=== PATIENT | male | born 1930 | race Caucasian/White ===

== ENCOUNTER 2018-03-17 08:16 | Inpatient (IN) | payer OTHER ==
[~2018-03-17] VITALS: Ht 175.3 cm; Wt 82.1 kg
[~2018-03-17 08:16] MED LIST: ALBUTEROL SULF8.5 GM IH; ASPIR-LOW81 MG PO; BP MEDICINE; CLOPIDOGREL75 MG PO; CYMBALTA60 MG PO; FINASTERIDE5 MG PO; FLAGYL500 MG PO; FLOMAX0.4 MG PO; GLIMEPIRIDE1 MG PO; GLIPIZIDE ER2.5 MG PO; GLIPIZIDE5 MG PO; HYDROCHLOROTH12.5 MG PO; LEVAQUIN500 MG PO; LEVOTHYROXINE25 MCG PO; LOVASTATIN40 MG PO; MIRTAZAPINE45 MG PO; NORVASC10 MG PO; SIMVASTATIN20 MG PO; TOVIAZ4 MG PO; ZITHROMAX500 MG PO
[2018-03-17] MEDS ORDERED: SODIUM CHLORIDE FLUSH 10 ML SYR INJ PRN (08:30)
[2018-03-17] MEDS ORDERED: ONDANSETRON HCL INJ 2 MG/ML VIAL IV STA (08:51)
[2018-03-17] MEDS ORDERED: MORPHINE SULFATE 4 MG/ML SYR IV STA (08:51)
--- NOTE | 2018-03-17 09:16 | Diagnostic Imaging Report ---
EXAMINATION: CT of the lumbar spine HISTORY:Chronic low back pain worsening this morning. No history of recent trauma. COMPARISON: Lumbar spine x-ray done 07/29/2013 TECHNIQUE: Multidetector helical axial images were obtained without contrast from L1 to S1. The images were reconstructed using bone and soft tissue algorithms and were viewed in axial, sagittal, and coronal planes. FINDINGS: Alignment:Normal alignment and lordosis. Vertebral bodies: Very minimal anterior wedging of the T12 vertebral body, otherwise normal height and density. Paraspinal soft tissues:Partially visualized hypodense foci in the kidneys, which are nonspecific and may represent cystic lesions, please see dictation of prior abdomen CT performed on 05-24-15 (images not available for comparison) for further detail. Intervertebral disks degenerative changes: Decreased disc height, chronic endplate degenerative changes and marginal osteophytes from L1-2 through L5-S1. L1-L2: Spondylosis, mild central disc vacuum phenomena and bilateral facet arthrosis. Mild to moderate bilateral foraminal stenosis. L2-L3: Spondylosis, central disc vacuum phenomena, ligamenta flava thickening and mild facet arthrosis. Mild to moderate bilateral foraminal stenoses. Minimal canal narrowing. L3-L4: Spondylosis, vacuum phenomena, ligamentum flavum thickening and facet arthrosis. Severe spinal canal and mild foraminal stenoses. Minimal retrolistheses. L4-L5 and L5-S1: Status post solid bilateral posterior fusion from L4 to S1 with interlaminar hardware in adequate position, no hardware failure, loosening or fracture. Solid interbody fusion is also seen at L4-L5 and on the left at L5-S1. No significant canal or foraminal stenosis. Unchanged from x-ray from 07/29/2013. Sacroiliac joints: -Degenerative changes bilaterally. -Bone defect along the posterior aspect of the right iliac bone, likely related to donor site for spine fusion. IMPRESSION: 1. Postoperative changes from L4 to S1 with solid fusion as detail above. 2. Severe degenerative spinal canal and mild foraminal stenoses at L3-L4. 3. Mild to moderate degenerative foraminal stenosis at L1-L2 and L2-L3. 4. Minimal retrolisthesis at L3-L4. Signed by: Dr. Licha Gabriel M.D. on 03/17/2018 9:12 AM
[2018-03-17 09:23] LABS: BASOPHILS % 0.5 % (0.0-1.0); EOSINOPHILS # (AUTO) 0.1 (0.0-0.4); EOSINOPHILS % 1.8 % (0.0-6.0); HEMATOCRIT 43.6 % (38.2-49.6); HEMOGLOBIN 14.6 g/dL (14.0-18.0); LYMPHOCYTES % 25.1 % (18.0-39.1); MEAN CORPUSCULAR HEMOGLOBIN 31.2 pg (28-32); MEAN CORPUSCULAR HGB CONC 33.5 g/dL (31-35); MEAN CORPUSCULAR VOLUME 93.2 fL (81-99); MONOCYTES # (AUTO) 0.8 (0.2-0.8); MONOCYTES % 9.5 % (4.4-11.3); NEUTROPHILS # (AUTO) 4.9 (2.1-6.9); NEUTROPHILS % 62.8 % (38.7-80.0); PLATELET COUNT 195 x10e3/uL (140-360); RED BLOOD COUNT 4.68 x10e6/uL (4.3-5.7); RED CELL DISTRIBUTION WIDTH 13.9 % (11.7-14.4)
[2018-03-17] MEDS ORDERED: MORPHINE SULFATE 2 MG/ML SYR ONE (09:29)
[2018-03-17 09:37] LABS: ALBUMIN 3.8 g/dL (3.5-5.0); ANION GAP 18.8 mmol/L (8-16); CALCIUM 9.6 mg/dL (8.4-10.2); CREATININE, SERUM 1.66 mg/dL (0.72-1.25); POTASSIUM 4.8 mmol/L (3.5-5.1)
[2018-03-17] MEDS ORDERED: FENTANYL CITRATE/PF 100MCG/2 ML INJ IV ONE (10:30)
[2018-03-17 11:05] LABS: CLARITY,URINE CLEAR (CLEAR); COLOR,URINE YELLOW (YELLOW)
[2018-03-17 11:06] LABS: BILIRUBIN,URINE NEGATIVE (NEGATIVE); KETONES,URINE NEGATIVE (NEGATIVE); LEUKOCYTE ESTERASE ,URINE NEGATIVE (NEGATIVE); NITRITE,URINE NEGATIVE (NEGATIVE); PROTEIN,URINE DIPSTICK 1+ (NEGATIVE); URINE UROBILINOGEN 0.2 mg/dL (0.2 - 1)
[2018-03-17 11:17] LABS: AMORPHOUS SEDIMENT,URINE FEW (FEW); BACTERIA,URINE FEW /HPF; EPITHELIAL CELLS,URINE MODERATE /LPF; RBC,URINE 0-5 /HPF (0-5); WBC,URINE (MAN) 0-5 /HPF (0-5)
[2018-03-17] MEDS ORDERED: ONDANSETRON HCL INJ 2 MG/ML VIAL IV PRN (11:45)
[2018-03-17] MEDS ORDERED: HYDROMORPHONE 1MG/1ML INJ IV PRN (11:45)
[2018-03-17] MEDS ORDERED: NOVOLIN N100 UNIT/1 SQ (11:49)
[2018-03-17] MEDS ORDERED: LATANOPROST2.5 ML OP (11:49)
[2018-03-17] MEDS ORDERED: LISINOPRIL2.5 MG PO (11:49)
[2018-03-17] MEDS ORDERED: HYDROMORPHONE HC2 MG PO (11:50)
--- OUTSIDE RECORDS SUMMARY | 2018-03-17 12:46 | XMS REPORT ---
Author Author [facility] Address Unknown Phone Unavailable Care Team Providers Care Long Term Care Pharmacist Name Role Phone MANNY HERNADEZ Unavailable Unavailable Problems This patient has no known problems. Allergies, Adverse Reactions, Alerts This patient has no known allergies or adverse reactions. Medications This patient has no known medications. Results Test Description Test Time Test Comments Text Results Atomic Results Result Comments CT LUMBAR SPINE WO [facility] [address] [address] Patient Name: GEE OWUSU MR #: [id number] : 1930 Age/Sex: 87/M Req #: [id number] Adm Physician: Ordered by: MANNY HERNADEZ MD Report #: [id number] Location: ER Room/Bed: Procedure: [id number] CT/CT LUMBAR SPINE WO Exam Date: 03/17/18 Exam Time: 0830 REPORT STATUS: Signed EXAMINATION: CT of the lumbar spine HISTORY:Chronic low back pain worsening this morning. No history of recent trauma. COMPARISON: Lumbar spine x-ray done 07/29/2013 TECHNIQUE: Multidetector helical axial images were obtained without contrast from L1 to S1. The images were reconstructed using bone and soft tissue algorithms and were viewed in axial, sagittal, and coronal planes. FINDINGS : Alignment:Normal alignment and lordosis. Vertebral bodies: Very minimal anterior wedging of the T12 vertebral body, otherwise normal height and density. Paraspinal soft tissues:Partially visualized hypodense foci in the kidneys, which are nonspecific and may represent cystic lesions, please see dictation of prior abdomen CT performed on 05-24-15 (images not available for comparison) for further detail. Intervertebral disks degenerative changes: Decreased disc height, chronic endplate degenerative changes and marginal osteophytes from L1-2 through L5- S1. L1-L2: Spondylosis, mild central disc vacuum phenomena and bilateral facet arthrosis. Mild to moderate bilateral foraminal stenosis. L2-L3: Spondylosis, central disc vacuum phenomena, ligamenta flava thickening and mild facet arthrosis. Mild to moderate bilateral foraminal stenoses. Minimal canal narrowing. L3-L4: Spondylosis, vacuum phenomena, ligamentum flavum thickening and facet arthrosis. Severe spinal canal and mild foraminal stenoses. Minimal retrolistheses. L4-L5 and L5-S1: Status post solid bilateral posterior fusion from L4 to S1 with interlaminar hardware in adequate position, no hardware failure, loosening or fracture. Solid interbody fusion is also seen at L4-L5 and on the left at L5-S1. No significant canal or foraminal stenosis. Unchanged from x-ray from 07/29/2013. Sacroiliac joints: -Degenerative changes bilaterally. -Bone defect along the posterior aspect of the right iliac bone, likely related to donor site for spine fusion. IMPRESSION: 1. Postoperative changes from L4 to S1 with solid fusion as detail above. 2. Severe degenerative spinal canal and mild foraminal stenoses at L3-L4. 3. Mild to moderate degenerative foraminal stenosis at L1-L2 and L2-L3. 4. Minimal retrolisthesis at L3-L4. Signed by: Dr. Alexx Lopez M.D. on 03/17/2018 9 :12 AM Dictated By: ALEXX LOPEZ MD 1 Transcribed By: ELICEO on 03/17/18911 COPY TO: MANNY HERNADEZ MD
[2018-03-17] MEDS ORDERED: LORAZEPAM INJ 2 MG/ML VIAL IV ONE (14:30)
[2018-03-17 16:45] VITALS: BP 152/85
[2018-03-17 16:55] VITALS: BP 152/85
[2018-03-17] MEDS ORDERED: DEXTROSE 50% SYRINGE 50 ML IV PRN (19:30)
[2018-03-17 20:00] VITALS: BP 180/88
[2018-03-17] MEDS: MORPHINE SULFATE 2 MG/ML SYR IV PRN (20:54)
[2018-03-17] MEDS ORDERED: FINASTERIDE 5 MG TAB PO SCH (21:00)
[2018-03-17] MEDS ORDERED: SIMVASTATIN 40 MG TAB PO SCH (21:00)
[2018-03-17] MEDS ORDERED: SIMVASTATIN 20 MG TAB PO SCH (21:00)
[2018-03-18] VITALS: BP 141/69
[2018-03-18 04:00] VITALS: BP 146/66
[2018-03-18] MEDS ORDERED: LEVOTHYROXINE SODIUM 125 MCG TAB PO SCH (06:00)
[2018-03-18] MEDS ORDERED: NON-FORMULARY MEDICATION (Glimepiride 1 MG) PO SCH (07:30)
[2018-03-18] MEDS ORDERED: GLIPIZIDE 5 MG TAB PO SCH (07:30)
[2018-03-18] MEDS ORDERED: GLIMEPIRIDE 2 MG TAB PO SCH (07:30)
[2018-03-18 07:45] VITALS: BP 121/67
[2018-03-18] MEDS: MORPHINE SULFATE 2 MG/ML SYR IV PRN (08:02)
[2018-03-18] MEDS ORDERED: PANTOPRAZOLE SOD 40 MG TABEC PO ONE (08:45)
[2018-03-18] MEDS ORDERED: MELOXICAM 7.5 MG TAB PO SCH (08:45)
[2018-03-18] MEDS ORDERED: PREDNISONE 20 MG TAB PO ONE (08:45)
[2018-03-18] MEDS: NPH, HUMAN INSULIN ISOPHANE 100 UNIT/1 ML 3ML VIAL SQ SCH ×2 (08:53→12:06)
[2018-03-18] MEDS ORDERED: GABAPENTIN 100 MG CAP PO SCH (09:00)
[2018-03-18] MEDS ORDERED: DULOXETINE HCL 30 MG DELAYED RELEASE PO SCH (09:00)
[2018-03-18] MEDS ORDERED: NON-FORMULARY MEDICATION (Duloxetine Hcl (Cymbalta) 60 MG) PO SCH (09:00)
[2018-03-18] MEDS ORDERED: TAMSULOSIN HCL 0.4 MG CAP PO SCH ×2 (09:00→21:00)
[2018-03-18] MEDS: SENNOSIDES 8.6 MG TAB PO SCH ×2 (09:00→09:15)
[2018-03-18] MEDS ORDERED: MIRTAZAPINE 45 MG PO SCH (09:00)
[2018-03-18] MEDS ORDERED: CLOPIDOGREL BISULFATE 75 MG TAB PO SCH (09:00)
[2018-03-18] MEDS ORDERED: MIRTAZAPINE 15 MG TAB PO SCH ×2 (09:00→21:00)
[2018-03-18] MEDS ORDERED: LISINOPRIL 2.5 MG TAB PO SCH (09:00)
[2018-03-18] MEDS ORDERED: LEVOTHYROXINE SODIUM 25 MCG TABLET PO SCH (09:00)
[2018-03-18] MEDS ORDERED: PANTOPRAZOLE SOD 40 MG TABEC ONE (09:05)
[2018-03-18] MEDS ORDERED: GABAPENTIN 100 MG CAP ONE (09:05)
[2018-03-18] MEDS ORDERED: SENNOSIDES 8.6 MG TAB ONE (09:05)
[2018-03-18] MEDS ORDERED: PREDNISONE 20 MG TAB ONE (09:05)
[2018-03-18] MEDS ORDERED: MELOXICAM 7.5 MG TAB ONE (09:05)
[2018-03-18 10:14] VITALS: BP 121/67
[2018-03-18 10:32] VITALS: BP 135/79
[2018-03-18 11:41] VITALS: BP 105/67
[2018-03-18] MEDS ORDERED: PREDNISONE5 MG PO (11:41)
[2018-03-18] MEDS ORDERED: NEURONTIN100 MG PO (11:43)
[2018-03-18] MEDS ORDERED: MOBIC15 MG PO (11:43)
[2018-03-18] MEDS ORDERED: SENNA LAX8.6 MG PO (11:44)
[2018-03-18] MEDS ORDERED: PRILOSEC10 M1 PO (11:44)
[2018-03-18] MEDS ORDERED: LATANOPROST(OPTH) 2.5 ML BTL OP SCH (21:00)
== END 2018-03-18 13:15 | disposition home health service (06) | DRG 552 ==
LOC: ER 08:16 → ERHOLD 11:33 → IMCU 16:34 → MED/SURG 20:22
PROVIDERS: ADMIT Internal Medicine; ATTEND Internal Medicine
DX: M54.5 Low back pain (principal); E11.9 Type 2 diabetes mellitus without complications; I10 Essential (primary) hypertension; Z79.4 Long term (current) use of insulin; F32.9 Major depressive disorder, single episode, unspecified; F41.9 Anxiety disorder, unspecified
CPT/HCPCS: 36415; 72131; 80053; 81001; 82948; 85025; 99284; J1170; J2060; J2270; J2405

== ENCOUNTER 2018-05-29 12:13 | Emergency (ER) | payer OTHER ==
[~2018-05-29] VITALS: Ht 175.3 cm; Wt 88.0 kg
[~2018-05-29 12:13] MED LIST changes: +HYDROMORPHONE HC2 MG PO; +LATANOPROST2.5 ML OP; +LISINOPRIL2.5 MG PO; +MOBIC15 MG PO; +NEURONTIN100 MG PO; +NOVOLIN N100 UNIT/1 SQ; +PREDNISONE5 MG PO; +PRILOSEC10 M1 PO; +SENNA LAX8.6 MG PO
[2018-05-29 12:47] LABS: BASOPHILS % 0.4 % (0.0-1.0); EOSINOPHILS # (AUTO) 0.1 (0.0-0.4); EOSINOPHILS % 1.1 % (0.0-6.0); HEMOGLOBIN 15.1 g/dL (14.0-18.0); LYMPHOCYTES # (AUTO) 2.2 (1.0-3.2); LYMPHOCYTES % 24.4 % (18.0-39.1); MEAN CORPUSCULAR HEMOGLOBIN 30.8 pg (28-32); MEAN CORPUSCULAR HGB CONC 32.8 g/dL (31-35); MEAN CORPUSCULAR VOLUME 93.7 fL (81-99); MONOCYTES # (AUTO) 0.8 (0.2-0.8); MONOCYTES % 8.3 % (4.4-11.3); NEUTROPHILS % 65.3 % (38.7-80.0); PLATELET COUNT 207 x10e3/uL (140-360); RED BLOOD COUNT 4.91 x10e6/uL (4.3-5.7); RED CELL DISTRIBUTION WIDTH 14.2 % (11.7-14.4)
[2018-05-29 12:59] LABS: ALBUMIN 3.9 g/dL (3.5-5.0); ANION GAP 16.6 mmol/L (8-16); CALCIUM 10.1 mg/dL (8.4-10.2); CREATININE, SERUM 1.82 mg/dL (0.72-1.25); POTASSIUM 4.6 mmol/L (3.5-5.1)
[2018-05-29] MEDS ORDERED: LORAZEPAM INJ 2 MG/ML VIAL IV ONE (13:00)
[2018-05-29 13:19] LABS: CREATINE KINASE MB 1.9 ng/mL (0-5.0); THYROID STIMULATING HORMONE 1.099 uIU/mL (0.350-4.940)
--- NOTE | 2018-05-29 16:17 | Diagnostic Imaging Report ---
EXAM: CT Abdomen and Pelvis WITHOUT contrast INDICATION: Pain. Acute abdomen. KSP. COMPARISON: None. TECHNIQUE: Abdomen and pelvis were scanned utilizing a multidetector helical scanner from the lung base to the pubic symphysis without administration of IV contrast. Absence of intravenous contrast decreases sensitivity for detection of focal lesions and vascular pathology. Coronal and sagittal reformations were obtained. Routine protocol was performed. IV CONTRAST: None. ORAL CONTRAST: Water RADIATION DOSE: Total DLP: 624.73 mGy*cm Estimated effective dose: (DLP x 0.015 x size factor) mSv COMPLICATIONS: None FINDINGS: LINES and TUBES: None. LOWER THORAX: Bibasilar emphysematous changes. Coronary artery calcifications. HEPATOBILIARY: Small low-attenuation lesions suggestive of cysts, the largest in the lateral segment of the left lobe measuring 1.2 cm on image 35 series 3.. No biliary ductal dilation. GALLBLADDER: No radio-opaque stones or sludge. No wall thickening. SPLEEN: No splenomegaly. PANCREAS: No focal masses or ductal dilatation. Multiple pancreatic head calcifications. ADRENALS: No adrenal nodules KIDNEYS/URETERS: No hydronephrosis. 6.0 cm cyst in the lower pole of the right kidney. 2.7 cm cyst in the posterior interpolar region of the left kidney. No stones. GI TRACT: No abnormal distention, wall thickening, or evidence of bowel obstruction. Large volume of stool within the colon. Scattered descending and sigmoid colon diverticulosis without CT evidence of diverticulitis. Appendix is normal. PELVIC ORGANS/BLADDER: Unremarkable. LYMPH NODES: No lymphadenopathy. VESSELS: There is moderate atherosclerotic disease in the aorta and major arterial branches. Ectatic iliac arteries, with the left, iliac artery measuring 2.1 cm in diameter. PERITONEUM / RETROPERITONEUM: No free air or fluid. BONES: The site defect in the right ilium. Status post laminectomy and posterior fusion of L4-L5 with transpedicular screws system. SOFT TISSUES: Unremarkable. IMPRESSION: 1. Large volume of stool within the colon may reflect constipation in the proper clinical setting. No small bowel obstruction. 2. Colonic diverticulosis without diverticulitis. Signed by: Dr. Elver Cancino M.D. on 05/29/2018 4:14 PM
[2018-05-29 17:33] LABS: BILIRUBIN,URINE NEGATIVE (NEGATIVE); CLARITY,URINE CLEAR (CLEAR); COLOR,URINE YELLOW (YELLOW); KETONES,URINE NEGATIVE (NEGATIVE); LEUKOCYTE ESTERASE ,URINE NEGATIVE (NEGATIVE); NITRITE,URINE NEGATIVE (NEGATIVE); PROTEIN,URINE DIPSTICK NEGATIVE (NEGATIVE); URINE UROBILINOGEN 0.2 mg/dL (0.2 - 1)
[2018-05-29 17:34] LABS: EPITHELIAL CELLS,URINE MODERATE /LPF
[2018-05-29 17:35] LABS: RBC,URINE 0-5 /HPF (0-5); WBC,URINE (MAN) 0-5 /HPF (0-5)
[2018-05-29 21:48] VITALS: BP 126/84
== END 2018-05-29 22:40 | disposition home or self-care (01) ==
LOC: ER 12:13
DX: F33.2 Major depressive disorder, recurrent severe without psychotic features (principal); R53.1 Weakness; E11.9 Type 2 diabetes mellitus without complications; N28.9 Disorder of kidney and ureter, unspecified; G89.29 Other chronic pain
CPT/HCPCS: 36415; 74176; 80053; 81001; 82550; 82553; 84443; 84484; 85025; 93005; 99284; J2060

== ENCOUNTER 2018-06-25 07:36 | Emergency (ER) | payer OTHER ==
[~2018-06-25] VITALS: Ht 177.8 cm; Wt 88.0 kg
[2018-06-25] MEDS ORDERED: SODIUM CHLORIDE 0.9% 1000ML 1,000 ML IV STA (08:16)
[2018-06-25 09:06] LABS: BASOPHILS % 0.3 % (0.0-1.0); EOSINOPHILS # (AUTO) 0.1 (0.0-0.4); EOSINOPHILS % 1.2 % (0.0-6.0); HEMATOCRIT 41.5 % (38.2-49.6); HEMOGLOBIN 13.4 g/dL (14.0-18.0); LYMPHOCYTES # (AUTO) 1.6 (1.0-3.2); LYMPHOCYTES % 20.5 % (18.0-39.1); MEAN CORPUSCULAR HEMOGLOBIN 30.7 pg (28-32); MEAN CORPUSCULAR HGB CONC 32.3 g/dL (31-35); MEAN CORPUSCULAR VOLUME 95.2 fL (81-99); MONOCYTES # (AUTO) 0.8 (0.2-0.8); MONOCYTES % 10.6 % (4.4-11.3); NEUTROPHILS # (AUTO) 5.2 (2.1-6.9); NEUTROPHILS % 67.3 % (38.7-80.0); PLATELET COUNT 162 x10e3/uL (140-360); RED BLOOD COUNT 4.36 x10e6/uL (4.3-5.7); RED CELL DISTRIBUTION WIDTH 14.3 % (11.7-14.4)
--- NOTE | 2018-06-25 09:15 | Diagnostic Imaging Report ---
PROCEDURE: CHEST SINGLE (PORTABLE) COMPARISON: None. INDICATIONS: SHORTNESS OF BREATH, ANXIETY FINDINGS: The lungs are well-inflated. No focal airspace consolidation, pleural effusion, or pneumothorax. Mild prominence of the pulmonary interstitial likely reflects age-related fibrotic changes. Normal heart size. Tortuous thoracic aorta with prominence of the right paratracheal region of the mediastinum likely reflective of great vessel tortuosity. No acute osseous abnormality. CONCLUSION: No acute cardiopulmonary abnormality. Dictated by: Chino Plunkett M.D. on 06/25/2018 at 9:17 Electronically approved by: Chino Plunkett M.D. on 06/25/2018 at 9:17
[2018-06-25 09:24] LABS: ALBUMIN 3.5 g/dL (3.5-5.0); ALBUMIN/GLOBULIN RATIO 1.1 (0.8-2.0); CALCIUM 9.5 mg/dL (8.4-10.2); CREATININE, SERUM 1.6 mg/dL (0.72-1.25)
[2018-06-25 09:30] LABS: CREATINE KINASE MB 1.9 ng/mL (0-5.0)
[2018-06-25 09:47] LABS: ACETAMINOPHEN < 3 ug/mL (10-30); SALICYLATE < 5.0 mg/dL (0-30)
[2018-06-25 14:38] LABS: CLARITY,URINE SL CLOUDY (CLEAR); COLOR,URINE YELLOW (YELLOW); LEUKOCYTE ESTERASE ,URINE NEGATIVE (NEGATIVE); NITRITE,URINE NEGATIVE (NEGATIVE)
[2018-06-25 14:39] LABS: AMPHETAMINES SCREEN,URINE NEGATIVE (NEGATIVE); BENZODIAZEPINES SCREEN,URINE NEGATIVE (NEGATIVE); BILIRUBIN,URINE NEGATIVE (NEGATIVE); KETONES,URINE NEGATIVE (NEGATIVE); PHENCYCLIDINE SCREEN,URINE NEGATIVE (NEGATIVE); PROTEIN,URINE DIPSTICK NEGATIVE (NEGATIVE); URINE UROBILINOGEN 0.2 mg/dL (0.2 - 1)
[2018-06-25 14:44] LABS: BACTERIA,URINE RARE /HPF; EPITHELIAL CELLS,URINE MODERATE /LPF; TRANSITIONAL EPI CELLS,URINE FEW
[2018-06-25] MEDS ORDERED: HYDROMORPHONE 1MG/1ML INJ IV STA (16:17)
[2018-06-25] MEDS ORDERED: ONDANSETRON HCL INJ 2 MG/ML VIAL IV STA (16:17)
[2018-06-25 17:01] VITALS: BP 139/58
== END 2018-06-25 16:46 ==
LOC: ER 07:36
DX: R45.851 Suicidal ideations (principal); F32.9 Major depressive disorder, single episode, unspecified; M25.511 Pain in right shoulder; M54.9 Dorsalgia, unspecified; G89.29 Other chronic pain; I10 Essential (primary) hypertension; E11.9 Type 2 diabetes mellitus without complications; E78.5 Hyperlipidemia, unspecified
CPT/HCPCS: 36415; 71045; 80053; 80307; 80320; 80329 ×2; 81001; 82550; 82553; 84484; 85025; 93005; 99284; J1170; J2405; J7030

== ENCOUNTER 2018-07-04 08:56 | Emergency (ER) | payer OTHER ==
[~2018-07-04] VITALS: Ht 177.8 cm; Wt 88.0 kg
[2018-07-04] MEDS ORDERED: KETOROLAC TROMETHAMINE 30 MG/ML VIAL IM STA (09:07)
[2018-07-04] MEDS ORDERED: KETOROLAC TROMETHAMINE 30 MG/ML VIAL ONE (09:09)
[2018-07-04] MEDS ORDERED: LORAZEPAM 0.5 MG TAB ONE (09:10)
[2018-07-04] MEDS ORDERED: LORAZEPAM 0.5 MG TAB PO ONE (09:15)
== END 2018-07-04 09:27 | disposition home or self-care (01) ==
LOC: ER 08:56
DX: F41.1 Generalized anxiety disorder (principal); F32.0 Major depressive disorder, single episode, mild; M25.511 Pain in right shoulder; M54.5 Low back pain; S39.012A Strain of muscle, fascia and tendon of lower back, initial encounter; I10 Essential (primary) hypertension
CPT/HCPCS: 99283; J1885

== ENCOUNTER 2018-07-12 11:04 | Emergency (ER) | payer OTHER ==
[~2018-07-12] VITALS: Ht 177.8 cm; Wt 88.0 kg
--- OUTSIDE RECORDS SUMMARY | 2018-08-26 03:13 | XMS REPORT | Continuity of Care Document ---
Author Author [facility] Organization [facility] Address [address] [place] [address] Phone Unavailable Care Team Providers Care Sporting Goods Sales Associate Name Role Phone GALEN SOTO MD PCP Insurance Providers Guarantor Gee Pinto Address [address] [place] [address] Email PTDECLINED Payer [employer] Policy Number [id number] Subscriber's Name Gee Pinto Relationship 18 Self / Same As Patient Group Number [id number] Group Name [employer] Effective Date 18 Advance Directives Directive Response Recorded Date/Time Does the patient have an advance directive? No 03/17/18 4:50pm If yes, is advance directive on file with [facility]? No 03/17/18 4:50pm If not on file with [facility] will patient provide a copy? No 03/17/18 4:50pm Do you have a Directive to Physician? No 07/04/18 9:17am Do you have a Medical Power of Olericulturist? No 07/04/18 9:17am Do you have an out of hospital Do Not Resuscitate Order? No 07/04/18 9:17am Do you have any special needs we should be aware of? No 07/04/18 9:17am Do you have a support person here with you today? Yes 07/04/18 9:17am Did patient receive Notice of Privacy Practices? Yes 07/04/18 9:17am Did patient receive patient rights and responsibilities? Yes 07/04/18 9:17am Problems Medical Problem Onset Date Status Fever 12/16/2014 Acute Gastroenteritis 05/24/2015 Acute Hypoxia 12/16/2014 Acute Intractable back pain Unknown Medications Current Home Medications Medication Dose Units Route Directions Days Qty Instructions Start Date Clopidogrel Bisulfate (Clopidogrel) 75 Mg Tablet 75 Mg Oral Daily 30 Tab Duloxetine Hcl (Cymbalta) 60 Mg Capsule.dr 60 Mg Oral Twice A Day Finasteride 5 Mg Tablet 5 Mg Oral Bedtime 30 Tab Gabapentin (Neurontin) 100 Mg Capsule 100 Mg Oral Three Times A Day Glipizide 5 Mg Tablet 2.5 Mg Oral Daily Hydromorphone Hcl 2 Mg Tablet 8 Mg Oral Twice A Day as needed for Pain Latanoprost 2.5 Ml Drops 2.5 Ml Ophthalmic Daily Levothyroxine Sodium 25 Mcg Tablet 125 Mcg Oral Daily Lisinopril 2.5 Mg Tablet 2.5 Mg Oral Daily 30 Tab Lovastatin 40 Mg Tablet 40 Mg Oral Bedtime THERAPEUTICALLY SUBSTITUTED WITH SIMVASTATIN 20MG Meloxicam (Mobic) 15 Mg Tablet 7.5 Mg Oral Twice A Day Mirtazapine 45 Mg Tablet 45 Mg Oral Daily Nph, Human Insulin Isophane (Novolin N) 100 Unit/1 Ml Vial 30 Units Sub-Q Before Meals Omeprazole Magnesium (Prilosec) 10 Mg Suspdr.pkt 20 Mg Oral Daily Prednisone 5 Mg Tablet 5 Mg Oral Daily Sennosides (Senna Lax) 8.6 Mg Tablet 8.6 Mg Oral Twice A Day Tamsulosin Hcl (Flomax*) 0.4 Mg Cap 0.4 Mg Oral Daily Past Home Medications Medication Directions Ordered Status Albuterol Sulfate (Albuterol Sulfate Hfa) 8.5 Gm Hfa.aer.ad, 90 Mcg Inhalation Every 4 Hours as needed for Cough 12/20/14 Discontinued Amlodipine Besylate (Norvasc) 10 Mg Tab, 10 Mg Oral Daily Discontinued Aspirin (Aspir-Low) 81 Mg Tablet.dr, 81 Mg Oral Daily Discontinued Azithromycin (Zithromax) 500 Mg Tablet, 250 Mg Oral Daily 12/20/14 Discontinued Bp Medicine , Discontinued Fesoterodine Fumarate (Toviaz) 4 Mg Tab.er.24h, 4 Mg Oral Daily Discontinued Glimepiride 1 Mg Tablet, 1 Mg Oral Twice Daily Before Meals Discontinued Glipizide (Glipizide Er) 2.5 Mg Tab.er.24, 5 Mg Oral Daily Discontinued Hydrochlorothiazide 12.5 Mg Tablet, 12.5 Mg Oral Daily Discontinued Levofloxacin (Levaquin) 500 Mg Tablet, 500 Mg Oral Daily 05/25/15 Discontinued Metronidazole (Flagyl) 500 Mg Tablet, 500 Mg Oral Three Times A Day 05/25/15 Discontinued Simvastatin 20 Mg Tablet, 20 Mg Oral Daily Discontinued Social History Social History Problem Response Recorded Date/Time Onset Date Status Hx Psychiatric Problems No 03/17/2018 4:50pm Not Applicable Not Applicable Hx Eating Disorder No 03/17/2018 4:50pm Not Applicable Not Applicable Hx Substance Use Disorder No 03/17/2018 4:50pm Not Applicable Not Applicable Hx Depression No 03/17/2018 4:50pm Not Applicable Not Applicable Hx Alcohol Use No 03/17/2018 4:50pm Not Applicable Not Applicable Hx Substance Use Treatment No 03/17/2018 4:50pm Not Applicable Not Applicable Hx Physical Abuse No 03/17/2018 4:50pm Not Applicable Not Applicable Hospital Discharge Instructions No hospital discharge instruction information available. Plan of Care Discharge Date 07/04/18 9:27am Disposition HOME, SELF-CARE Condition at Discharge Stable Instructions/Education Provided Generalized Anxiety Disorder Back Pain Fall Prevention Prescriptions See Medication Section Referrals GALEN SOTO MD Address: [address] [place] [id number] Additional Instructions/Education KEEP YOUR DOCTOR APPOINTMENT 07/22/2018. FOLLOW INSTRUCTIONS FOR ALL MEDICATIONS. Functional Status No functional status information available. Allergies, Adverse Reactions, Alerts Allergen Type Severity Reaction Status Last Updated Iodine Allergy Unknown Active 05/29/18 Immunizations No immunization information available. Vital Signs Acute Vital Signs Vital Response Date/Time Temperature (Fahrenheit) 98.2 degrees F (97.6 - 99.5) 05/29/2018 9:48pm Pulse Pulse Rate (adult) 74 bpm (60 - 90) 06/25/2018 5:01pm Respiratory Rate 20 bpm (12 - 24) 06/25/2018 5:01pm Blood Pressure 139/58 mm Hg 06/25/2018 5:01pm Height 5 ft 10 in 07/04/2018 8:59am Weight 194 lb 07/04/2018 8:59am Body Mass Index 27.8 kg/m^2 07/04/2018 8:59am Results Laboratory Results Test Name Result Units Flags Reference Collection Date/Time Result Date/ Time Comments Urine Amorphous Sediment FEW FEW 03/17/2018 10:40am 03/17/2018 11: 17am Bedside Glucose 198 mg/dL H 70-120 03/18/2018 11:31am 03/18/2018 12: 05pm Meter ID: [id number] Thyroid Stimulating Hormone (TSH) 1.099 uIU/mL 0.350-4.940 05/29/2018 12 :25pm 05/29/2018 1:20pm White Blood Count 7.72 x10e3/uL 4.8-10.8 06/25/2018 8:40am 06/25/2018 9 :06am Red Blood Count 4.36 x10e6/uL 4.3-5.7 06/25/2018 8:40am 06/25/2018 9: 06am Hemoglobin 13.4 g/dL L 14.0-18.0 06/25/2018 8:40am 06/25/2018 9:06am Hematocrit 41.5 % 38.2-49.6 06/25/2018 8:40am 06/25/2018 9:06am Mean Corpuscular Volume 95.2 fL 81-99 06/25/2018 8:40am 06/25/2018 9: 06am Mean Corpuscular Hemoglobin 30.7 pg 28-32 06/25/2018 8:40am 06/25/2018 9:06am Mean Corpuscular Hemoglobin Concent 32.3 g/dL 31-35 06/25/2018 8:40am 06/25/2018 9:06am Red Cell Distribution Width 14.3 % 11.7-14.4 06/25/2018 8:40am 2017 9:06am Platelet Count 162 x10e3/uL 140-360 06/25/2018 8:40am 06/25/2018 9: 06am Neutrophils (%) (Auto) 67.3 % 38.7-80.0 06/25/2018 8:40am 06/25/2018 9: 06am Lymphocytes (%) (Auto) 20.5 % 18.0-39.1 06/25/2018 8:40am 06/25/2018 9: 06am Monocytes (%) (Auto) 10.6 % 4.4-11.3 06/25/2018 8:40am 06/25/2018 9: 06am Eosinophils (%) (Auto) 1.2 % 0.0-6.0 06/25/2018 8:40am 06/25/2018 9: 06am Basophils (%) (Auto) 0.3 % 0.0-1.0 06/25/2018 8:40am 06/25/2018 9:06am IM GRANULOCYTES % 0.1 % 0.0-1.0 06/25/2018 8:40am 06/25/2018 9:06am Neutrophils # (Auto) 5.2 2.1-6.9 06/25/2018 8:40am 06/25/2018 9:06am Lymphocytes # (Auto) 1.6 1.0-3.2 06/25/2018 8:40am 06/25/2018 9:06am Monocytes # (Auto) 0.8 0.2-0.8 06/25/2018 8:40am 06/25/2018 9:06am Eosinophils # (Auto) 0.1 0.0-0.4 06/25/2018 8:40am 06/25/2018 9:06am Basophils # (Auto) 0.0 0.0-0.1 06/25/2018 8:40am 06/25/2018 9:06am Absolute Immature Granulocyte (auto 0.01 x10e3/uL 0-0.1 06/25/2018 8: 40am 06/25/2018 9:06am Urine Color YELLOW YELLOW 06/25/2018 2:10pm 06/25/2018 2:40pm Urine Clarity SL CLOUDY H CLEAR 06/25/2018 2:10pm 06/25/2018 2:40pm Urine Specific [place] 1.020 1.010-1.025 06/25/2018 2:10pm 2017 2:40pm Urine pH 6 5 - 7 06/25/2018 2:10pm 06/25/2018 2:40pm Urine Leukocyte Esterase NEGATIVE NEGATIVE 06/25/2018 2:10pm 2017 2:40pm Urine Nitrite NEGATIVE NEGATIVE 06/25/2018 2:10pm 06/25/2018 2:40pm Urine Protein NEGATIVE NEGATIVE 06/25/2018 2:10pm 06/25/2018 2:40pm Urine Glucose (UA) NEGATIVE NEGATIVE 06/25/2018 2:10pm 06/25/2018 2: 40pm Urine Ketones NEGATIVE NEGATIVE 06/25/2018 2:10pm 06/25/2018 2:40pm Urine Opiates Screen POSITIVE H NEGATIVE 06/25/2018 2:10pm 06/25/2018 2:40pm This test provides only a screen. Positive results should be repeated by a confirmatory test. Urine Barbiturates Screen NEGATIVE NEGATIVE 06/25/2018 2:10pm 2017 2:40pm Urine Phencyclidine Screen NEGATIVE NEGATIVE 06/25/2018 2:10pm 2017 2:40pm Urine Amphetamines Screen NEGATIVE NEGATIVE 06/25/2018 2:10pm 2017 2:40pm Urine Methamphetamines Screen NEGATIVE NEGATIVE 06/25/2018 2:10pm 01/2018 2:40pm Urine Benzodiazepines Screen NEGATIVE NEGATIVE 06/25/2018 2:10pm 01/2018 2:40pm Urine Cocaine Screen NEGATIVE NEGATIVE 06/25/2018 2:10pm 06/25/2018 2 :40pm Urine Cannabinoids Screen NEGATIVE NEGATIVE 06/25/2018 2:10pm 2017 2:40pm THESE RESULTS ARE FOR MEDICAL TREATMENT ONLY *THIS REPORT CONTAINS UNCONFIRMED SCREENING RESULTS* POSITIVE RESULTS WILL BE CONFIRMED BY REFERENCE LAB UPON REQUEST CUT-OFF DRUG CLASS CONCENTRATION ng/mL Amphetamines 1000 Methamphetamines 1000 Cocaine 300 Opiate 300 Phencyclidine 25 Cannabinoid 50 Barbiturates 300 Benzodiazepine 300 Methadone 300 Urine Urobilinogen 0.2 mg/dL 0.2 - 1 06/25/2018 2:10pm 06/25/2018 2: 40pm Urine Bilirubin NEGATIVE NEGATIVE 06/25/2018 2:10pm 06/25/2018 2: 40pm Urine Blood NEGATIVE NEGATIVE 06/25/2018 2:10pm 06/25/2018 2:40pm Urine WBC NONE /HPF 0-5 06/25/2018 2:10pm 06/25/2018 2:44pm Urine RBC NONE /HPF 0-5 06/25/2018 2:10pm 06/25/2018 2:44pm Urine Bacteria RARE /HPF NONE 06/25/2018 2:10pm 06/25/2018 2:44pm Urine Epithelial Cells MODERATE /LPF NONE 06/25/2018 2:10pm 06/25/2018 2:44pm Urine Transitional Epithelial Cells FEW NONE 06/25/2018 2:10pm 2017 2:44pm Sodium Level 140 mmol/L 136-145 06/25/2018 8:40am 06/25/2018 9:24am Potassium Level 4.0 mmol/L 3.5-5.1 06/25/2018 8:40am 06/25/2018 9:24am Chloride Level 107 mmol/L 98-107 06/25/2018 8:40am 06/25/2018 9:24am Carbon Dioxide Level 25 mmol/L 22-29 06/25/2018 8:40am 06/25/2018 9: 24am Anion Gap 12.0 mmol/L 8-16 06/25/2018 8:40am 06/25/2018 9:24am Blood Urea Nitrogen 22 mg/dL 7-06/25/2018 8:40am 06/25/2018 9:24am Creatinine 1.60 mg/dL H 0.72-1.25 06/25/2018 8:40am 06/25/2018 9:24am BUN/Creatinine Ratio 14 6-25 06/25/2018 8:40am 06/25/2018 9:24am Estimat Glomerular Filtration Rate 41 ML/MIN L 60- 06/25/2018 8:40am 01/2018 9:24am Ranges were taken from the National Kidney Disease Education Program and the National Kid[employer] Foundation literature. Reference ranges: 60 or greater: Normal 16-59 (for 3 consecutive months): Chronic kidney disease 15 or less: Kidney failure Glucose Level 143 mg/dL H 74-118 06/25/2018 8:40am 06/25/2018 9:24am Calcium Level 9.5 mg/dL 8.4-10.2 06/25/2018 8:40am 06/25/2018 9:24am Total Bilirubin 0.7 mg/dL 0.2-1.2 06/25/2018 8:40am 06/25/2018 9:24am Aspartate Amino Transf (AST/SGOT) 21 IU/L 5-34 06/25/2018 8:40am 2017 9:24am Alanine Aminotransferase (ALT/SGPT) 16 IU/L 0-55 06/25/2018 8:40am 01/2018 9:24am Total Protein 6.8 g/dL 6.5-8.1 06/25/2018 8:40am 06/25/2018 9:24am Albumin 3.5 g/dL 3.5-5.0 06/25/2018 8:40am 06/25/2018 9:24am Globulin 3.3 g/dL 2.3-3.5 06/25/2018 8:40am 06/25/2018 9:24am Albumin/Globulin Ratio 1.1 0.8-2.0 06/25/2018 8:40am 06/25/2018 9: 24am Alkaline Phosphatase 84 IU/L 40-150 06/25/2018 8:40am 06/25/2018 9: 24am Creatine Kinase 133 IU/L 30-200 06/25/2018 8:40am 06/25/2018 9:24am Creatine Kinase MB 1.90 ng/mL 0-5.0 06/25/2018 8:40am 06/25/2018 9: 30am Troponin I 0.011 ng/mL 0-0.300 06/25/2018 8:40am 06/25/2018 9:30am Acetaminophen Level < 3 ug/mL L 10-30 06/25/2018 8:40am 06/25/2018 9: 47am Ethyl Alcohol Level < 10.0 mg/dL 0.0-10.0 06/25/2018 8:40am 06/25/2018 9:47am Salicylates Level < 5.0 mg/dL 0-30 06/25/2018 8:40am 06/25/2018 9:47am Procedures Procedure Status Date Provider(s) Computed tomography of lumbar spine without contrast Active 03/17/[address] of abdomen and pelvis without contrast Active 05/29/18 TAVO TARIQ MD Encounters Encounter Location Arrival/Admit Date Discharge/Depart Date Attending Provider Departed Emergency Room [facility] 07/04/18 8:56am 9:27am MANNY HERNADEZ MD Departed Emergency Room [facility] 06/25/18 7:36am 4:46pm TAVO TARIQ MD Departed Emergency Room [facility] 05/29/18 12:13pm 05/29 10:40pm TAVO TARIQ MD Discharged Inpatient [facility]'s Patients [facility] 03/17/18 11:33am 1:15pm GEE TWIARI MD
== END 2018-07-12 12:01 | disposition home or self-care (01) ==
LOC: ER 11:04
DX: F41.1 Generalized anxiety disorder (principal); F33.2 Major depressive disorder, recurrent severe without psychotic features
CPT/HCPCS: 99283

== ENCOUNTER 2018-07-24 11:07 | Emergency (ER) | payer OTHER ==
[~2018-07-24] VITALS: Ht 182.9 cm; Wt 81.6 kg
[2018-07-24] MEDS ORDERED: HYDROMORPHONE 1MG/1ML INJ IM ONE (12:15)
[2018-07-24] MEDS ORDERED: KETOROLAC TROMETHAMINE 60 MG/2 ML VIAL IM ONE (12:30)
[2018-07-24 12:56] VITALS: BP 124/66
== END 2018-07-24 13:01 | disposition home or self-care (01) ==
LOC: ER 11:07
DX: M54.5 Low back pain (principal); S39.012A Strain of muscle, fascia and tendon of lower back, initial encounter; G89.29 Other chronic pain; I10 Essential (primary) hypertension; E11.9 Type 2 diabetes mellitus without complications; F41.9 Anxiety disorder, unspecified; F43.10 Post-traumatic stress disorder, unspecified
CPT/HCPCS: 99283; J1170

== ENCOUNTER 2018-08-21 18:54 | Observation (INO) | payer OTHER ==
[~2018-08-21] VITALS: Ht 208.3 cm; Wt 80.3 kg
[2018-08-21] MEDS ORDERED: SODIUM CHLORIDE 0.9% 500ML 500 ML IV STA (21:37)
--- NOTE | 2018-08-21 21:59 | Diagnostic Imaging Report ---
EXAM: CHEST SINGLE (PORTABLE), AP 1 view INDICATION: Fall COMPARISON: None FINDINGS: LINES/TUBES: None LUNGS: No consolidations or edema. PLEURA: No effusions or pneumothorax. HEART AND MEDIASTINUM: Normal size and contour. BONES AND SOFT TISSUES: No acute findings. IMPRESSION: No acute thoracic abnormality. Signed by: Dr. Vicky Madrid M.D. on 08/21/2018 9:56 PM
[2018-08-21 22:08] LABS: INR 0.97; PROTHROMBIN TIME 13.8 seconds (11.9-14.5)
[2018-08-21 22:15] LABS: BASOPHILS % 0.2 % (0.0-1.0); EOSINOPHILS % 0.1 % (0.0-6.0); HEMATOCRIT 44.1 % (38.2-49.6); HEMOGLOBIN 14.3 g/dL (14.0-18.0); LYMPHOCYTES # (AUTO) 0.9 (1.0-3.2); LYMPHOCYTES % 7.4 % (18.0-39.1); MEAN CORPUSCULAR HEMOGLOBIN 30.8 pg (28-32); MEAN CORPUSCULAR HGB CONC 32.4 g/dL (31-35); MONOCYTES # (AUTO) 0.9 (0.2-0.8); MONOCYTES % 7.2 % (4.4-11.3); NEUTROPHILS # (AUTO) 10.4 (2.1-6.9); NEUTROPHILS % 84.6 % (38.7-80.0); PLATELET COUNT 157 x10e3/uL (140-360); RED BLOOD COUNT 4.64 x10e6/uL (4.3-5.7); RED CELL DISTRIBUTION WIDTH 14.3 % (11.7-14.4)
[2018-08-21 22:17] LABS: ALBUMIN 3.7 g/dL (3.5-5.0); ALBUMIN/GLOBULIN RATIO 1.1 (0.8-2.0); ANION GAP 16.9 mmol/L (8-16); CALCIUM 9.6 mg/dL (8.4-10.2); CREATININE, SERUM 1.74 mg/dL (0.72-1.25); POTASSIUM 4.9 mmol/L (3.5-5.1)
[2018-08-21 22:26] LABS: CREATINE KINASE MB 4.6 ng/mL (0-5.0)
[2018-08-21] MEDS ORDERED: SODIUM CHLORIDE 0.9% 1000ML 1,000 ML IV ONE (22:42)
[2018-08-21] MEDS ORDERED: ASPIRIN 81 MG CHEW TAB PO ONE (22:45)
[2018-08-21] MEDS ORDERED: CEFTRIAXONE SOD 1 GM VIAL IV SCH (23:00)
[2018-08-21 23:04] LABS: BILIRUBIN,URINE NEGATIVE (NEGATIVE); CLARITY,URINE CLEAR (CLEAR); COLOR,URINE YELLOW (YELLOW); KETONES,URINE NEGATIVE (NEGATIVE); LEUKOCYTE ESTERASE ,URINE NEGATIVE (NEGATIVE); NITRITE,URINE NEGATIVE (NEGATIVE); PROTEIN,URINE DIPSTICK NEGATIVE (NEGATIVE); URINE UROBILINOGEN 1 mg/dL (0.2 - 1)
[2018-08-21 23:28] LABS: BACTERIA,URINE RARE /HPF; EPITHELIAL CELLS,URINE RARE /LPF; RBC,URINE 0-5 /HPF (0-5); WBC,URINE (MAN) 0-5 /HPF (0-5)
[2018-08-22] VITALS (7 sets, daily range): BP systolic 123–145; BP diastolic 58–76
[2018-08-22] MEDS: ONDANSETRON HCL INJ 2 MG/ML VIAL IV PRN ×3 (00:35→14:02)
[2018-08-22] MEDS: MORPHINE SULFATE 2 MG/ML SYR IV PRN ×3 (00:35→14:02)
--- NOTE | 2018-08-22 06:36 | Diagnostic Imaging Report ---
EXAM: CHEST SINGLE (PORTABLE), AP 1 view INDICATION: Weakness COMPARISON: AP view of the chest at 0 12/08/2018 FINDINGS: LINES/TUBES: None LUNGS: No consolidations or edema. PLEURA: No effusions or pneumothorax. HEART AND MEDIASTINUM: The heart is within normal size limits. Stable widening of the upper mediastinum, likely due to ectatic vasculature. BONES AND SOFT TISSUES: No acute findings. IMPRESSION: No acute thoracic abnormality. Signed by: Dr. Vicky Madrid M.D. on 08/22/2018 6:32 AM
[2018-08-22 07:23] LABS: BASOPHILS % 0.3 % (0.0-1.0); EOSINOPHILS # (AUTO) 0.1 (0.0-0.4); EOSINOPHILS % 0.5 % (0.0-6.0); HEMATOCRIT 40.9 % (38.2-49.6); HEMOGLOBIN 13.3 g/dL (14.0-18.0); LYMPHOCYTES # (AUTO) 2.1 (1.0-3.2); LYMPHOCYTES % 18.5 % (18.0-39.1); MEAN CORPUSCULAR HEMOGLOBIN 31.4 pg (28-32); MEAN CORPUSCULAR HGB CONC 32.5 g/dL (31-35); MEAN CORPUSCULAR VOLUME 96.5 fL (81-99); MONOCYTES # (AUTO) 1.1 (0.2-0.8); MONOCYTES % 9.7 % (4.4-11.3); NEUTROPHILS % 70.8 % (38.7-80.0); PLATELET COUNT 153 x10e3/uL (140-360); RED BLOOD COUNT 4.24 x10e6/uL (4.3-5.7); RED CELL DISTRIBUTION WIDTH 14.4 % (11.7-14.4)
[2018-08-22 07:40] LABS: ANION GAP 14.3 mmol/L (8-16); CALCIUM 9.1 mg/dL (8.4-10.2); CREATININE, SERUM 1.49 mg/dL (0.72-1.25); POTASSIUM 4.3 mmol/L (3.5-5.1)
[2018-08-22 08:06] LABS: CREATINE KINASE MB 8.5 ng/mL (0-5.0)
[2018-08-22] MEDS ORDERED: DEXTROSE 50% SYRINGE 50 ML IV PRN (15:15)
[2018-08-22] MEDS ORDERED: HYDROMORPHONE HCL 2 MG TAB PO PRN (15:30)
[2018-08-22 15:43] LABS: CREATINE KINASE MB 10.4 ng/mL (0-5.0)
[2018-08-22] MEDS: INSULIN LISPRO 100 UNIT/1 ML 3ML VIAL SQ SCH ×2 (16:30→21:00)
[2018-08-22] MEDS: DULOXETINE HCL 30 MG DELAYED RELEASE PO SCH (17:39)
[2018-08-22] MEDS: SENNOSIDES 8.6 MG TAB PO SCH (17:39)
--- NOTE | 2018-08-22 18:50 | History and Physical ---
PRIMARY CARE PHYSICIAN: Dr. Shaun Rios. CHIEF COMPLAINT: Generalized weakness. HISTORY: Patient is an 88-year-old male, progressively weak for the past 3 to 4 months per patient. Lives at home with his , but also his daughter is there to help. The did not want daughter there. Apparently, the patient was having increasing generalized weakness and fell, could not get up, EMS called and the patient was brought to the hospital. He is stable otherwise except for generalized weakness, which is progressive. Patient did have some OT treatment at home per patient, but he stated he did not get full physical therapy. Patient is otherwise stable. PAST MEDICAL HISTORY: Hypertension, diabetes type 2, major depression, anxiety disorder, enlarged prostate, dyslipidemia, and insomnia. PAST SURGICAL HISTORY: Multiple back surgeries. SOCIAL HISTORY: Patient lives with his spouse. He does not smoke or use alcohol. No recreational drugs. ALLERGIES: TO IODINE. HOME MEDICATIONS: List reviewed. REVIEW OF SYSTEMS: Generalized weakness. PHYSICAL EXAMINATION VITAL SIGNS: Temperature is 98, blood pressure 123/58, pulse rate 61, respirations 18. GENERAL: The patient is not in acute distress, awake. HEENT: Normocephalic, atraumatic. Anicteric. NECK: Supple grossly. PULMONARY: Diminished breath sounds. CARDIOVASCULAR: Regular rate and rhythm. ABDOMEN: Soft, unremarkable. EXTREMITIES: No cyanosis or edema. NEUROLOGIC: No focal deficit. LABORATORIES: Sodium is 144, potassium 4.3, chloride 109, bicarb 25, BUN 27, creatinine is 1.49, and glucose 122. WBC is 11.3, hemoglobin 13.3, hematocrit 40.9, and platelets is 153. IMPRESSION 1. Generalized weakness. 2. Dehydration. 3. Chronic medical decline. PLAN: Observation. PT/OT. Arrangement for the patient to go home either with home health for more physical therapy and occupational therapy. We will get in touch with patient to arrange for possible transitional care for care at home. Patient is otherwise stable. Home medication adjustment is made. Job#: [id number] LAURY
[2018-08-22] MEDS ORDERED: FINASTERIDE 5 MG TAB PO SCH (21:00)
[2018-08-22] MEDS: GABAPENTIN 100 MG CAP PO SCH (21:24)
[2018-08-23] VITALS: BP 169/70
[2018-08-23] MEDS: SODIUM CHLORIDE 0.45% 1,000 ML IV SCH ×2 (01:43→07:01)
[2018-08-23 04:00] VITALS: BP 124/60
[2018-08-23] MEDS ORDERED: LEVOTHYROXINE SODIUM 125 MCG TAB PO SCH (06:00)
[2018-08-23 06:33] LABS: BASOPHILS % 0.2 % (0.0-1.0); EOSINOPHILS # (AUTO) 0.1 (0.0-0.4); EOSINOPHILS % 0.9 % (0.0-6.0); HEMOGLOBIN 12.3 g/dL (14.0-18.0); LYMPHOCYTES # (AUTO) 1.7 (1.0-3.2); LYMPHOCYTES % 20.4 % (18.0-39.1); MEAN CORPUSCULAR HEMOGLOBIN 30.8 pg (28-32); MEAN CORPUSCULAR HGB CONC 32.4 g/dL (31-35); MEAN CORPUSCULAR VOLUME 95.2 fL (81-99); MONOCYTES # (AUTO) 0.8 (0.2-0.8); MONOCYTES % 9.7 % (4.4-11.3); NEUTROPHILS # (AUTO) 5.6 (2.1-6.9); NEUTROPHILS % 68.4 % (38.7-80.0); PLATELET COUNT 132 x10e3/uL (140-360); RED BLOOD COUNT 3.99 x10e6/uL (4.3-5.7); RED CELL DISTRIBUTION WIDTH 14.2 % (11.7-14.4)
[2018-08-23 06:37] VITALS: BP 124/60
[2018-08-23 06:54] LABS: ANION GAP 12.9 mmol/L (8-16); CALCIUM 8.2 mg/dL (8.4-10.2); CREATININE, SERUM 1.31 mg/dL (0.72-1.25); POTASSIUM 3.9 mmol/L (3.5-5.1)
[2018-08-23 07:25] LABS: FOLATE 13.7 ng/mL (7.0-15.4)
[2018-08-23] MEDS ORDERED: OMEPRAZOLE 20 MG CAP PO SCH (07:30)
[2018-08-23] MEDS: INSULIN LISPRO 100 UNIT/1 ML 3ML VIAL SQ SCH ×2 (07:30→11:30)
[2018-08-23 08:00] VITALS: BP 120/61
[2018-08-23] MEDS: ONDANSETRON HCL INJ 2 MG/ML VIAL IV PRN (08:36)
[2018-08-23] MEDS: DULOXETINE HCL 30 MG DELAYED RELEASE PO SCH (08:59)
[2018-08-23] MEDS: GABAPENTIN 100 MG CAP PO SCH (08:59)
[2018-08-23] MEDS ORDERED: LATANOPROST(OPTH) 2.5 ML BTL OP SCH (09:00)
[2018-08-23] MEDS ORDERED: CLOPIDOGREL BISULFATE 75 MG TAB PO SCH (09:00)
[2018-08-23] MEDS ORDERED: GLIPIZIDE 5 MG TAB PO SCH (09:00)
[2018-08-23] MEDS: SENNOSIDES 8.6 MG TAB PO SCH (09:00)
[2018-08-23 11:53] VITALS: BP 120/61
[2018-08-23 11:55] VITALS: BP 140/63
[2018-08-23] MEDS ORDERED: TAMSULOSIN HCL 0.4 MG CAP PO SCH (21:00)
== END 2018-08-23 12:34 | disposition home health service (06) ==
LOC: ER 18:54 → ERHOLD 22:59 → MED/SURG2 08-22 00:47
PROVIDERS: ADMIT Internal Medicine; ATTEND Internal Medicine
DX: R53.1 Weakness (principal); Z91.81 History of falling; Z82.49 Family history of ischemic heart disease and other diseases of the circulatory system; I10 Essential (primary) hypertension; E11.9 Type 2 diabetes mellitus without complications; F32.9 Major depressive disorder, single episode, unspecified; N40.0 Benign prostatic hyperplasia without lower urinary tract symptoms; E78.5 Hyperlipidemia, unspecified; G47.00 Insomnia, unspecified; E86.0 Dehydration; R53.81 Other malaise
CPT/HCPCS: 36415 ×3; 51700; 71045 ×2; 80048 ×2; 80053; 81001; 82550 ×2; 82553 ×2; 82607; 82746; 82948 ×2; 83036; 84443; 84484 ×2; 85025 ×3; 85610; 85730; 93005; 97116; 97161; 99284; G0378 ×3; G8978; G8979; J0696; J2270; J2405 ×2; J7030; J7040